=== PATIENT | female | born 1995 | race Caucasian/White ===

== ENCOUNTER 2023-10-01 12:00 | Emergency (ER) | payer OTHER, SELFPAY ==
[2023-10-01 12:07] VITALS: BP 99/65; PULSE 90; RESP 16; TEMP 37; O2SAT 98; BMI 35.9
[2023-10-01 13:04] VITALS: BP 99/65; PULSE 90; RESP 16; TEMP 37; O2SAT 98
--- NOTE | 2023-10-01 13:32 | ED.SKABFB ---
HPI - Skin/Abscess/Foreign Bdy General Chief complaint: Skin/Abscess/Foreign Body Stated complaint: scabies Time Seen by Provider: 10/01/23 12:34 Source: patient Mode of arrival: ambulatory Limitations: no limitations History of Present Illness HPI narrative: ?27 Year old female presents for medical evaluation/clearance? from residential after a resident was thought to have scabies. Reports were mandated to come in and be seen she works there No complaints. Denies rash, itchiness, numbness, tingling, recent illness.? Related Data Previous Rx's ?Medication ?Instructions ?Recorded ivermectin 3 mg tablet 17,237 mcg PO QWEEK 2 doses #12 10/01/23 tabs permethrin 5 % topical cream 1 appl topical Q14D 2 doses #60 10/01/23 grams Allergies Allergy/AdvReac Type Severity Reaction Status Date / Time No Known Allergies Allergy Verified 10/01/23 12:10 Review of Systems Review of Systems: Yes all other systems are reviewed and are negative PMFSH Past Medical History Attestation statement: The following information was validated with the patient. Source: old records reviewed and nursing notes reviewed Social History Social History Advance Directives: No Physical Exam Vital Signs: Vital Signs: Last Vital Signs Temp 98.6 F 10/01/23 13:04 Pulse 90 10/01/23 13:04 Resp 16 10/01/23 13:04 BP 99/65 10/01/23 13:04 Pulse Ox 98 10/01/23 13:04 O2 Del Method Room Air 10/01/23 13:04 BMI result Body Mass Index 35.9 vss Appearance: Alert.? Oriented X3.? No acute distress.? Head:? Normocephalic, atraumatic, no step-offs or deformities Eyes: Pupils equal, round and reactive to light.? Neck: Normal inspection.? Neck supple.? CVS: Pulses normal.? Respiratory: No respiratory distress.?? Abdomen: No rash? Skin: Skin warm and dry.? Normal skin color.? Normal skin turgor.? No burrows noted to web spaces or throughout body? Extremities:? 5/5 strength to bilateral upper and lower extremities Neuro: Oriented X 3.? No motor deficit.? No sensory deficit. CN 2-12 intact Course Reevaluation(s) Reevaluation #1: Patient refused the permethrin cream. Is requesting the oral pill. Requesting ivermectin. Discuss this with Dr. Pedraza who sent the medicine to patient's pharmacy. Patient's pharmacy then changed. Therefore I gave her a written script so there would not be issues with the picking up of her prescription. Time: 13:33 Medical Decision Making Medical Decision Making [facility] Narrative: senior care resident presents requesting medical clearance after a member of the was though to have scabies? PE benign? Hx and pe likely exposed to scabies. No signs of actual scabies at this time. No signs of necrotizing infection. No cutaneous findings. Normal physical exam? Plan- dc back with permethrin incase rash arises? Differential Diagnosis Differential Diagnoses: The differential diagnosis associated with the presentation includes Admission/Observation Consideration of admission/observation: Escalation of care including admission/observation considered Lab Data [facility] Lab Attestation statement: I reviewed the patient's lab results. Discharge Plan Discharge Clinical Impression: Scabies exposure Patient Disposition: Home, Self-Care Additional Instructions: Take your medications as prescribed. If you were prescribed antibiotics today, it is important that you take your medication to their entirety, do not skip any doses, do not finish them early. Follow-up with your primary care provider this week. Return to the emergency department with new or worsening symptoms. In case of emergency call 911 Prescriptions: New permethrin 5 % cream 1 appl topical Q14D Qty: 60 0RF Rx Instructions: apply second treatment 14 days after first treatment if live lice remain ivermectin 3 mg tablet 17,237 mcg PO QWEEK Qty: 12 0RF Referrals: Physician,Unknown J [Primary Care Provider] - 2 days Stand Alone Forms: Work/School Release Interventions: ED Discharge Assessment Last Done: 10/01/23 13:04 Discharge Date/Time: 10/01/23 13:05 Print Language: Telugu
== END 2023-10-01 13:05 | disposition home or self-care (01) ==
PROVIDERS: Emergency Provider Emergency Medicine
DX: Z20.7 Contact with and (suspected) exposure to pediculosis, acariasis and other infestations (principal)
CPT/HCPCS: 99282; 99283